=== PATIENT | male | born 1975 | race Asian ===

== ENCOUNTER 2021-04-01 17:30 | Emergency (ER) | payer MEDICAID ==
[~2021-04-01] VITALS: Ht 167.6 cm; Wt 81.6 kg
[2021-04-01 17:36] VITALS: BP_SYST 126
--- NOTE | 2021-04-01 17:36 | NUR ---
Patient to ER bed 07 to gown for evaluation. Side rails up.
--- NOTE | 2021-04-01 17:38 | NUR ---
ER at bedside examining patient.
--- NOTE | 2021-04-01 17:40 | NUR ---
pt. came in with c/o 8/10 pain to right hand post dropping a weight on it. hand is swollen, along with pointer finger which pt. is unable to move.
[2021-04-01] MEDS ORDERED: IBUPROFEN 600 MG TABLET PO ONE (17:45)
--- NOTE | 2021-04-01 17:48 | NUR ---
ice pack applied to right hand
--- NOTE | 2021-04-01 17:50 | NUR ---
radiology at bedside for xray
[2021-04-01] MEDS ORDERED: IBUP-1969 PO (18:11)
[2021-04-01 19:06] VITALS: BP_SYST 127
--- NOTE | 2021-04-01 19:07 | NUR ---
Patient given written and verbal discharge instructions and verbalizes understanding. ER MD discussed with patient the results and treatment provided. Patient in stable condition. ID arm band removed. Rx of IBUPROFEN given. Patient educated on pain management and to follow up with PMD. Pain Scale 0/10. Opportunity for questions provided and answered. Medication side effect fact sheet provided.
== END 2021-04-01 19:06 | disposition home or self-care (01) ==
LOC: SED 17:30
DX: S62.610A Displaced fracture of proximal phalanx of right index finger, initial encounter for closed fracture (principal); S62.612A Displaced fracture of proximal phalanx of right middle finger, initial encounter for closed fracture; W23.0XXA Caught, crushed, jammed, or pinched between moving objects, initial encounter; Y93.89 Activity, other specified; Y92.89 Other specified places as the place of occurrence of the external cause; Y99.8 Other external cause status
CPT/HCPCS: 99283